=== PATIENT | female | born 1985 | race Caucasian/White ===

== ENCOUNTER 2020-04-22 15:35 | Inpatient (IN) | payer SELFPAY ==
[~2020-04-22] VITALS: Ht 170.2 cm; Wt 112.6 kg
[2020-04-22 15:40] VITALS: Ht 170.2 cm; Wt 112.6 kg
[2020-04-22 17:17] LABS: BASOPHIL % 0.1 % (0-2); PLATELET COUNT 273 x10^3mcL (130-400); RED CELL DISTRIBUTION WIDTH 13.7 % (11.5-14.5)
[2020-04-22 17:40] LABS: ALKALINE PHOSPHATASE 68 U/L (46-116); ALT/SGPT 17 U/L (14-59); AST/SGOT 12 U/L (15-37); BILIRUBIN TOTAL 0.3 mg/dL (0.20-1.00); CALCIUM 8.1 mg/dL (8.5-10.1); CHLORIDE SERUM 99 mmol/L (98-107); CHOLESTEROL 195 mg/dL (<200); GFR1 > 60 mL/min; LIPASE 270 IU/L (73-393); POTASSIUM SERUM 3.9 mmol/L (3.5-5.1); SODIUM SERUM 132 mmol/L (136-145); T4(THYROXINE) 6.8 ug/dL (4.7-13.3); TOTAL PROTEIN, SERUM 6.5 g/dL (6.4-8.2)
[2020-04-22 17:49] LABS: ALBUMIN 2.7 g/dL (3.4-5.0); HDL CHOLESTEROL 31 mg/dL (40-60)
[2020-04-22 17:50] LABS: GLUCOSE SERUM 471 mg/dL (74-106)
[2020-04-22 19:13] LABS: UA SPECIFIC GRAVITY 1.015 (1.005-1.035); microscopic required? YES; urine erythrocyte NEGATIVE (NEGATIVE)
[2020-04-22 19:27] LABS: AMPHETAMINE QUAL UR NONE DETECTED (See below)
[2020-04-22 21:06] VITALS: BP 174/99
[2020-04-22 22:23] VITALS: BP 174/99
== END 2020-04-22 23:42 | disposition left against medical advice (07) | DRG 638 ==
LOC: ED 15:35 → DU 18:55
PROVIDERS: Emergency Medicine; ADMIT Internal Medicine; ATTEND Internal Medicine
DX: E11.65 Type 2 diabetes mellitus with hyperglycemia (principal); E87.1 Hypo-osmolality and hyponatremia; I10 Essential (primary) hypertension; J45.909 Unspecified asthma, uncomplicated; E66.9 Obesity, unspecified; Z68.34 Body mass index [BMI] 34.0-34.9, adult; Z71.3 Dietary counseling and surveillance; F17.200 Nicotine dependence, unspecified, uncomplicated; E78.5 Hyperlipidemia, unspecified; Z53.29 Procedure and treatment not carried out because of patient's decision for other reasons; F17.210 Nicotine dependence, cigarettes, uncomplicated; Z91.19 Patient's noncompliance with other medical treatment and regimen; E11.610 Type 2 diabetes mellitus with diabetic neuropathic arthropathy
CPT/HCPCS: 82962; 90715; 99406; G0378; J0360; J1815; J2001; J7030; Q0092

== ENCOUNTER → 2020-04-22 | Emergency (ER) | payer OTHER | LOC: ED 15:35 | DX: Z02.89 Encounter for other administrative examinations (principal) | CPT/HCPCS: 36600 ==

== ENCOUNTER 2020-05-07 00:19 | Inpatient (IN) | payer SELFPAY ==
[~2020-05-07] VITALS: Ht 170.2 cm; Wt 108.4 kg
[2020-05-07 00:21] VITALS: Ht 170.2 cm; Wt 108.4 kg
[2020-05-07 01:56] LABS: BASOPHIL % 0.3 % (0-2); RED CELL DISTRIBUTION WIDTH 12.7 % (11.5-14.5)
[2020-05-07 01:58] LABS: PLATELET COUNT 372 x10^3mcL (130-400)
[2020-05-07 02:16] LABS: ALKALINE PHOSPHATASE 93 U/L (46-116); ALT/SGPT 17 U/L (14-59); AST/SGOT 15 U/L (15-37); BILIRUBIN TOTAL 0.33 mg/dL (0.20-1.00); CALCIUM 8.8 mg/dL (8.5-10.1); CARBON DIOXIDE 29.5 mmol/L (21-32); CHLORIDE SERUM 93 mmol/L (98-107); CREATININE SERUM 1.1 mg/dL (0.6-1.0); GFR1 > 60 mL/min; POTASSIUM SERUM 4.2 mmol/L (3.5-5.1); SODIUM SERUM 128 mmol/L (136-145); TOTAL PROTEIN, SERUM 7.9 g/dL (6.4-8.2)
[2020-05-07 02:19] LABS: ALBUMIN 2.7 g/dL (3.4-5.0)
[2020-05-07 02:27] LABS: GLUCOSE SERUM 501 mg/dL (74-106)
[2020-05-07 03:11] LABS: UA SPECIFIC GRAVITY 1.015 (1.005-1.035); microscopic required? YES; urine erythrocyte 3+ (NEGATIVE)
[2020-05-07 04:07] LABS: MAGNESIUM 1.8 mg/dL (1.8-2.4); PHOSPHOROUS 3.5 mg/dL (2.5-4.9)
[2020-05-07 04:16] LABS: FREE T4 1.24 ng/dL (0.76-1.46); FREE THYROXINE INDEX 2.7 ug/dL (1.4-4.5); T3 TOTAL 0.69 ng/mL; T4(THYROXINE) 7.6 ug/dL (4.7-13.3)
[2020-05-07 04:20] LABS: CHOLESTEROL 213 mg/dL (<200); CHOLESTEROL/HDL RATIO 7.9; HDL CHOLESTEROL 27 mg/dL (40-60); TRIGLYCERIDES 417 mg/dL (<150)
[2020-05-07 04:41] VITALS: BP 152/107
[2020-05-07 07:30] LABS: BASOPHIL % 0.4 % (0-2); PLATELET COUNT 359 x10^3mcL (130-400); RED CELL DISTRIBUTION WIDTH 13.3 % (11.5-14.5)
[2020-05-07 07:36] LABS: CALCIUM 8.7 mg/dL (8.5-10.1); CARBON DIOXIDE 26.4 mmol/L (21-32); CHLORIDE SERUM 101 mmol/L (98-107); CREATININE SERUM 0.9 mg/dL (0.6-1.0); GFR1 > 60 mL/min; GLUCOSE SERUM 388 mg/dL (74-106); POTASSIUM SERUM 4.4 mmol/L (3.5-5.1); SODIUM SERUM 133 mmol/L (136-145)
[2020-05-07 08:29] VITALS: BP 152/93
[2020-05-07 12:20] VITALS: BP 146/95
[2020-05-07 22:36] VITALS: BP 135/81
[2020-05-08 05:37] VITALS: BP 145/88
[2020-05-08 07:16] LABS: BASOPHIL % 0.4 % (0-2); PLATELET COUNT 317 x10^3mcL (130-400); RED CELL DISTRIBUTION WIDTH 13.2 % (11.5-14.5)
[2020-05-08 07:24] LABS: CALCIUM 8.6 mg/dL (8.5-10.1); CARBON DIOXIDE 26.8 mmol/L (21-32); CHLORIDE SERUM 102 mmol/L (98-107); CREATININE SERUM 0.7 mg/dL (0.6-1.0); GFR1 > 60 mL/min; GLUCOSE SERUM 240 mg/dL (74-106); MAGNESIUM 1.6 mg/dL (1.8-2.4); POTASSIUM SERUM 4.1 mmol/L (3.5-5.1); SODIUM SERUM 135 mmol/L (136-145)
[2020-05-08 08:25] VITALS: BP 158/98
[2020-05-08 16:45] VITALS: BP 137/98
[2020-05-08 20:20] VITALS: BP 155/90
[2020-05-09 05:46] VITALS: BP 145/93
[2020-05-09 07:45] VITALS: BP 151/95
[2020-05-09 09:15] LABS: BASOPHIL % 0.4 % (0-2); PLATELET COUNT 334 x10^3mcL (130-400); RED CELL DISTRIBUTION WIDTH 13.4 % (11.5-14.5)
[2020-05-09 09:39] LABS: CALCIUM 8.2 mg/dL (8.5-10.1); CARBON DIOXIDE 28.3 mmol/L (21-32); CHLORIDE SERUM 102 mmol/L (98-107); CREATININE SERUM 0.8 mg/dL (0.6-1.0); GFR1 > 60 mL/min; GLUCOSE SERUM 271 mg/dL (74-106); MAGNESIUM 1.7 mg/dL (1.8-2.4); PHOSPHOROUS 2.6 mg/dL (2.5-4.9); POTASSIUM SERUM 3.7 mmol/L (3.5-5.1); SODIUM SERUM 136 mmol/L (136-145)
[2020-05-09 12:30] VITALS: BP 143/94
[2020-05-09 15:50] VITALS: BP 171/94
[2020-05-09 20:35] VITALS: BP 150/91
[2020-05-10 05:00] VITALS: BP 136/97
[2020-05-10 07:26] LABS: BASOPHIL % 0.5 % (0-2); PLATELET COUNT 315 x10^3mcL (130-400); RED CELL DISTRIBUTION WIDTH 13.4 % (11.5-14.5)
[2020-05-10 07:53] LABS: CALCIUM 8.3 mg/dL (8.5-10.1); CARBON DIOXIDE 28.8 mmol/L (21-32); CHLORIDE SERUM 100 mmol/L (98-107); CREATININE SERUM 0.8 mg/dL (0.6-1.0); GFR1 > 60 mL/min; GLUCOSE SERUM 211 mg/dL (74-106); MAGNESIUM 1.5 mg/dL (1.8-2.4); PHOSPHOROUS 3.4 mg/dL (2.5-4.9); POTASSIUM SERUM 3.5 mmol/L (3.5-5.1); SODIUM SERUM 134 mmol/L (136-145)
[2020-05-10 08:00] VITALS: BP 176/98
[2020-05-10 12:00] VITALS: BP 145/88
[2020-05-10 16:00] VITALS: BP 183/106
[2020-05-10 21:16] VITALS: BP 146/92
[2020-05-11 05:09] LABS: RAPID PLASMA REAGIN Reactive (Non Reactive)
[2020-05-11 05:48] VITALS: BP 164/99
[2020-05-11 08:04] VITALS: BP 156/102
[2020-05-11 11:29] VITALS: BP 174/113
[2020-05-11 16:58] VITALS: BP 143/92
[2020-05-11 20:12] VITALS: BP 153/97
[2020-05-12 06:03] VITALS: BP 118/76
[2020-05-12 06:57] LABS: BASOPHIL % 0.4 % (0-2); PLATELET COUNT 373 x10^3mcL (130-400); RED CELL DISTRIBUTION WIDTH 13.8 % (11.5-14.5)
[2020-05-12 07:25] LABS: CALCIUM 9.2 mg/dL (8.5-10.1); CARBON DIOXIDE 28.8 mmol/L (21-32); CHLORIDE SERUM 101 mmol/L (98-107); CREATININE SERUM 0.9 mg/dL (0.6-1.0); GFR1 > 60 mL/min; GLUCOSE SERUM 250 mg/dL (74-106); MAGNESIUM 1.6 mg/dL (1.8-2.4); PHOSPHOROUS 3.7 mg/dL (2.5-4.9); POTASSIUM SERUM 4.1 mmol/L (3.5-5.1); SODIUM SERUM 135 mmol/L (136-145)
[2020-05-12 08:12] VITALS: BP 154/97
[2020-05-12 12:02] VITALS: BP 139/95
[2020-05-12 17:59] VITALS: BP 115/77
[2020-05-12 20:16] VITALS: BP 132/86
[2020-05-13 05:40] VITALS: BP 140/83
[2020-05-13 07:40] LABS: BASOPHIL % 0.4 % (0-2); PLATELET COUNT 368 x10^3mcL (130-400); RED CELL DISTRIBUTION WIDTH 13.6 % (11.5-14.5)
[2020-05-13 07:56] LABS: CALCIUM 8.3 mg/dL (8.5-10.1); CARBON DIOXIDE 25.8 mmol/L (21-32); CHLORIDE SERUM 102 mmol/L (98-107); CREATININE SERUM 0.8 mg/dL (0.6-1.0); GFR1 > 60 mL/min; GLUCOSE SERUM 251 mg/dL (74-106); MAGNESIUM 1.5 mg/dL (1.8-2.4); PHOSPHOROUS 3.5 mg/dL (2.5-4.9); POTASSIUM SERUM 3.8 mmol/L (3.5-5.1); SODIUM SERUM 134 mmol/L (136-145)
[2020-05-13 08:23] VITALS: BP 148/90
[2020-05-13 12:14] VITALS: BP 150/95
[2020-05-13 16:04] VITALS: BP 124/89
[2020-05-13] MEDS ORDERED: DOX100 PO (16:26)
[2020-05-13] MEDS ORDERED: LANTI SQ ×2 (16:29)
[2020-05-13] MEDS ORDERED: BLOOD LANCETS1 EACH TOP (16:30)
[2020-05-13] MEDS ORDERED: GLUCOSE TEST S1 EACH MC (16:31)
[2020-05-13] MEDS ORDERED: EASY COMFORT ALCO70% TOP (16:32)
[2020-05-13] MEDS ORDERED: METER-CHECK1 EACH MC (16:35)
[2020-05-13] MEDS ORDERED: NOR10 PO (16:40)
[2020-05-13] MEDS ORDERED: ZES20 PO (16:40)
[2020-05-13 20:50] VITALS: BP 152/96
[2020-05-14 05:31] VITALS: BP 121/76
[2020-05-14 07:16] VITALS: BP 115/80
[2020-05-14 07:17] LABS: BASOPHIL % 0.4 % (0-2); PLATELET COUNT 371 x10^3mcL (130-400); RED CELL DISTRIBUTION WIDTH 13.9 % (11.5-14.5)
[2020-05-14 07:41] LABS: CALCIUM 8.8 mg/dL (8.5-10.1); CARBON DIOXIDE 24.9 mmol/L (21-32); CHLORIDE SERUM 103 mmol/L (98-107); CREATININE SERUM 0.7 mg/dL (0.6-1.0); GFR1 > 60 mL/min; GLUCOSE SERUM 168 mg/dL (74-106); MAGNESIUM 1.3 mg/dL (1.8-2.4); PHOSPHOROUS 3.6 mg/dL (2.5-4.9); SODIUM SERUM 133 mmol/L (136-145)
[2020-05-14 11:37] VITALS: BP 115/80
[2020-05-14 11:42] VITALS: BP 115/80
== END 2020-05-14 16:24 | disposition home or self-care (01) | DRG 988 ==
LOC: ED 00:19 → MU 02:36 → DU 02:36 → MU 05-10 09:52
PROVIDERS: Emergency Medicine; Family Medicine; ADMIT Internal Medicine; ATTEND Internal Medicine
PROC: 0U9MXZZ Drainage of Vulva, External Approach (ICD-10-PCS; principal; 2020-05-07)
PROC: 0J9M0ZZ Drainage of Left Upper Leg Subcutaneous Tissue and Fascia, Open Approach (ICD-10-PCS; 2020-05-07)
DX: E11.628 Type 2 diabetes mellitus with other skin complications (principal); L02.416 Cutaneous abscess of left lower limb; N39.0 Urinary tract infection, site not specified; E87.1 Hypo-osmolality and hyponatremia; N76.2 Acute vulvitis; N17.9 Acute kidney failure, unspecified; K13.79 Other lesions of oral mucosa; I10 Essential (primary) hypertension; J45.909 Unspecified asthma, uncomplicated; E78.00 Pure hypercholesterolemia, unspecified; Z20.828 Contact with and (suspected) exposure to other viral communicable diseases; E11.621 Type 2 diabetes mellitus with foot ulcer; L97.519 Non-pressure chronic ulcer of other part of right foot with unspecified severity; E78.5 Hyperlipidemia, unspecified; F17.210 Nicotine dependence, cigarettes, uncomplicated; E86.0 Dehydration; E28.2 Polycystic ovarian syndrome; N94.6 Dysmenorrhea, unspecified; S91.341A Puncture wound with foreign body, right foot, initial encounter; E66.9 Obesity, unspecified; Z79.899 Other long term (current) drug therapy; Z79.84 Long term (current) use of oral hypoglycemic drugs; Z79.4 Long term (current) use of insulin; Z79.891 Long term (current) use of opiate analgesic; Z59.0 Homelessness; Z91.19 Patient's noncompliance with other medical treatment and regimen; Z68.34 Body mass index [BMI] 34.0-34.9, adult; W45.0XXA Nail entering through skin, initial encounter; Y93.89 Activity, other specified; Y92.89 Other specified places as the place of occurrence of the external cause; Y99.8 Other external cause status
CPT/HCPCS: 82962; 84439; 87491; 87591; C1758; G0378; J0131; J0690; J1170; J1815; J2001; J2250; J2270; J2405; J2543; J3010; J3370; J3475; J3490; J7030; J7050; Q0092